=== PATIENT | female | born 1980 | race Caucasian/White ===

== ENCOUNTER 2016-07-18 10:04 | Emergency (ER) | payer OTHER ==
--- NOTE | 2016-07-18 10:28 | EDPHY ---
HPI/HX/ROS/PE/MDM Narrative: CHIEF COMPLAINT: Vaginal itching and swelling HPI: The patient is a 35 y/o female complaining of vaginal itching and swelling onset this morning. She has no history of sexually transmitted diseases and denies new sexual partners. She has a remote history of a UTI, but denies any history of vaginal infections. She has some associated minor discharge she noticed on visual observation this morning. She denies dysuria, flank pain, hematuria, or malodorous discharge. REVIEW OF SYSTEMS: Aside from elements discussed in the HPI, a comprehensive 10-point review of systems was reviewed and is negative. PMH: No history of STI. SOCIAL HISTORY: PHYSICAL EXAM: General:Patient is alert, in no acute distress. ENT:Eyes are normal to inspection. ENT inspection normal. Neck: Normal inspection. Full range of motion. Respiratory:No respiratory distress. Breath sounds normal bilaterally. Cardiovascular: Regular rate and rhythm. Strong peripheral pulses. Normal cap refill. Abdomen:The abdomen is nontender to palpation. There are no peritoneal signs. There are normal bowel sounds. : normal external exam. No vaginal discharge, no lesions, no abscess. Back: Normal to inspection. No tenderness to palpation. Skin: Normal color. No rash. Warm and dry. Extremities: Normal appearance. Full range of motion. Neuro: Oriented x3. Normal motor function. Normal sensory function. ED Course: Vaginal swabs obtained. 1255: Lab results are still pending. Reassessed patient. Patient would like to go home and call later for her results. She will be discharged with one dose of Fluconazole and a referral to OBGYN. Return precautions given. She is comfortable with this plan. MDM: This patient presents with vaginal itching and irritation. On external exam, there are no signs of herpetic lesions, abscess or discharge. I attempted to defer full pelvic exam as patient was extremely anxious and tearful about exam. I did send GC/C swab as well as BV swabs which are pending. I think her symptoms are likely attributable to augusta vulvovaginitis, so have prescribed a single dose of Diflucan. The patient informed me that she need to leave the ED in order to make an appointment, so she is technically leaving before workup complete. I advised her to follow-up urgently with a COMPUTER [employer]IC DES[employer]ER. - Data Points Laboratory Results: 07/18/16 07/18/16 10:40 10:40 Trichomonas (Wet Prep) RARE YEAST H [place] species DNA Pending C.trachomatis RNA (TMA) Pending Gardnerella DNA Probe Pending N.gonorrhoeae RNA (TMA) Pending Trichomonas DNA Probe Pending General Time Seen by Provider: 07/18/16 10:11 Initial Vital Signs: Initial Vital Signs Temperature (C) 36.4 C 07/18/16 10:08 Heart Rate 75 07/18/16 10:08 Respiratory Rate 20 07/18/16 10:08 Blood Pressure 99/54 L 07/18/16 10:08 O2 Sat (%) 95 07/18/16 10:08 O2 Delivery Mode Room Air Allergies/Adverse Reactions: No Known Allergies Allergy (Unverified 07/18/16 10:08) Home Medications: Medication Instructions Recorded Fluconazole [Diflucan (*)] 150 mg PO ONCE #1 tab 07/18/16 Departure - Departure Disposition: Home, Routine, Self-Care Clinical Impression: Vaginitis Qualifiers: Chronicity: acute Qualified Code(s): N76.0 - Acute vaginitis Condition: Good Instructions: Vaginitis (ED) Additional Instructions: 1. Take Fluconazole as prescribed. 2. Follow up with an OBGYN on Wednesday. 3. Return to the ED for severe pain, inability to urinate, or other worsening of condition. 4. Call the ED at [phone] in 24-48 hours for your lab results. Referrals: NONE *PRIMARY CARE P,. [Primary Care Provider] - As per Instructions Senia Ochoa MD [Medical Doctor] - As per Instructions Prescriptions: Fluconazole [Diflucan (*)] 150 mg PO ONCE #1 tab Report Scribed for: Nixon Del Castillo Report Scribed by: Iman Mcdaniel Date of Report: 07/18/16 Time of Report: 10:28 Physician Review and Approval Statement: Portions of this note were transcribed by an ED scribe. I personally performed the history, physical exam, and medical decision making; and confirm the accuracy of the information in the transcribed note.
[2016-07-18 13:04] VITALS: BP 105/64; PULSE 67; RESP 18; TEMP 98.2; O2SAT 97
[2016-07-20 13:50] LABS: CHLAMYDIA AMPLIFICATION GENPRB NEGATIVE (NEGATIVE)
== END 2016-07-18 13:03 | disposition home or self-care (01) ==
DX: N76.0 Acute vaginitis (principal); B96.89 Other specified bacterial agents as the cause of diseases classified elsewhere